=== PATIENT | female | born 1950 | race Caucasian/White ===

== ENCOUNTER 2017-12-14 15:41 | Inpatient (IN) | payer MEDICARE, OTHER ==
[~2017-12-14] VITALS: Ht 167.6 cm; Wt 96.6 kg
[2017-12-14 16:00] LABS: BASOPHILS ABSOLUTE AUTO 0.05 K/mm3 (0.00-0.23); BASOPHILS PERCENT AUTO 1 % (0-2); EOSINOPHILS ABSOLUTE AUTO 0.14 K/mm3 (0.00-0.68); EOSINOPHILS PERCENT AUTO 2 % (0-6); Hematocrit 46.2 % (33.0-51.0); Hemoglobin 14.6 g/dL (11.5-16.0); IMMATURE GRAN ABSOLUTE AUTO 0.02 K/mm3 (0.00-0.10); IMMATURE GRAN PERCENT AUTO 0 % (0-1); LYMPHOCYTES ABSOLUTE AUTO 2.13 K/mm3 (0.84-5.20); LYMPHOCYTES PERCENT AUTO 29 % (21-46); MONOCYTES ABSOLUTE AUTO 0.71 K/mm3 (0.16-1.47); MONOCYTES PERCENT AUTO 10 % (4-13); Mean Corpuscular HGB 27.3 pg (26.0-34.0); Mean Corpuscular HGB Conc 31.6 g/dL (31.5-36.5); Mean Corpuscular Volume 87 fL (80-100); Mean Platelet Volume 12.4 fL (9.1-12.4); NEUTROPHILS ABSOLUTE AUTO 4.34 K/mm3 (1.96-9.15); NEUTROPHILS PERCENT AUTO 59 % (41-73); Platelet Count 245 K/mm3 (150-400); RDW Coefficient Variation 14.8 % (11.7-14.2); RDW Standard Deviation 46.5 fL (35.1-46.3); Red Blood Cell Count 5.34 M/mm3 (3.80-5.20); White Blood Cell Count 7.39 K/mm3 (4.00-11.30)
[2017-12-14 16:21] LABS: Alanine Aminotransfer (ALT/SGP 34 U/L (12-78); Albumin, Blood 3.8 g/dL (3.4-5.0); Albumin/Globulin Ratio 1.2 (0.8-1.8); Alk Phos 66 U/L (50-136); Anion Gap 9 mmol/L (6-16); Aspartate Aminotrans (AST/SGOT 16 U/L (12-37); Bilirubin, Total 1.1 mg/dL (0.1-1.0); Blood Urea Nitrogen 11 mg/dL (8-24); Bun/Creatinine Ratio 14.9 (12.0-20.0); CO2, Blood 30 mmol/L (21-32); Calcium, Blood 8.8 mg/dL (8.5-10.1); Chloride, Blood 104 mmol/L (98-108); Creatinine, Blood 0.74 mg/dL (0.40-1.00); Globulin, Blood 3.2 g/dL (2.2-4.0); Glomerular Filtration Rate >60 (60-); Glucose, Blood 100 mg/dL (70-99); Potassium, Blood 3.4 mmol/L (3.5-5.5); Sodium, Blood 143 mmol/L (136-145); Troponin I <0.015 ng/mL (0.000-0.040)
[2017-12-15 06:48] LABS: Hematocrit 44.2 % (33.0-51.0); Mean Corpuscular HGB 27.2 pg (26.0-34.0); Mean Corpuscular HGB Conc 31.7 g/dL (31.5-36.5); Mean Corpuscular Volume 86 fL (80-100); Mean Platelet Volume 12.2 fL (9.1-12.4); Platelet Count 234 K/mm3 (150-400); RDW Coefficient Variation 14.8 % (11.7-14.2); RDW Standard Deviation 46.7 fL (35.1-46.3); Red Blood Cell Count 5.15 M/mm3 (3.80-5.20)
[2017-12-15 07:06] LABS: Anion Gap 8 mmol/L (6-16); Blood Urea Nitrogen 11 mg/dL (8-24); Bun/Creatinine Ratio 18.2 (12.0-20.0); CO2, Blood 29 mmol/L (21-32); Chloride, Blood 105 mmol/L (98-108); Creatinine, Blood 0.61 mg/dL (0.40-1.00); Glomerular Filtration Rate >60 (60-); Glucose, Blood 89 mg/dL (70-99); Potassium, Blood 4.1 mmol/L (3.5-5.5); Sodium, Blood 142 mmol/L (136-145); Troponin I <0.015 ng/mL (0.000-0.040)
[2017-12-16 03:58] LABS: BASOPHILS ABSOLUTE AUTO 0.03 K/mm3 (0.00-0.23); BASOPHILS PERCENT AUTO 1 % (0-2); EOSINOPHILS ABSOLUTE AUTO 0.32 K/mm3 (0.00-0.68); EOSINOPHILS PERCENT AUTO 5 % (0-6); Hematocrit 46.1 % (33.0-51.0); Hemoglobin 14.2 g/dL (11.5-16.0); IMMATURE GRAN ABSOLUTE AUTO 0.01 K/mm3 (0.00-0.10); IMMATURE GRAN PERCENT AUTO 0 % (0-1); LYMPHOCYTES PERCENT AUTO 27 % (21-46); MONOCYTES ABSOLUTE AUTO 0.63 K/mm3 (0.16-1.47); MONOCYTES PERCENT AUTO 10 % (4-13); Mean Corpuscular HGB 26.7 pg (26.0-34.0); Mean Corpuscular HGB Conc 30.8 g/dL (31.5-36.5); Mean Corpuscular Volume 87 fL (80-100); Mean Platelet Volume 12.6 fL (9.1-12.4); NEUTROPHILS ABSOLUTE AUTO 3.61 K/mm3 (1.96-9.15); NEUTROPHILS PERCENT AUTO 57 % (41-73); Platelet Count 219 K/mm3 (150-400); RDW Coefficient Variation 14.6 % (11.7-14.2); Red Blood Cell Count 5.31 M/mm3 (3.80-5.20)
[2017-12-16 04:28] LABS: Albumin, Blood 3.3 g/dL (3.4-5.0); Anion Gap 7 mmol/L (6-16); Blood Urea Nitrogen 14 mg/dL (8-24); Bun/Creatinine Ratio 19.4 (12.0-20.0); CO2, Blood 31 mmol/L (21-32); Calcium, Blood 8.5 mg/dL (8.5-10.1); Chloride, Blood 104 mmol/L (98-108); Creatinine, Blood 0.72 mg/dL (0.40-1.00); Glomerular Filtration Rate >60 (60-); Glucose, Blood 97 mg/dL (70-99); Phosphorus, Blood 4.3 mg/dL (2.5-4.9); Potassium, Blood 4.2 mmol/L (3.5-5.5); Sodium, Blood 142 mmol/L (136-145); Troponin I <0.015 ng/mL (0.000-0.040)
[2017-12-17 04:19] LABS: BASOPHILS ABSOLUTE AUTO 0.05 K/mm3 (0.00-0.23); BASOPHILS PERCENT AUTO 1 % (0-2); EOSINOPHILS ABSOLUTE AUTO 0.28 K/mm3 (0.00-0.68); EOSINOPHILS PERCENT AUTO 5 % (0-6); Hematocrit 45.3 % (33.0-51.0); Hemoglobin 14.3 g/dL (11.5-16.0); IMMATURE GRAN ABSOLUTE AUTO 0.02 K/mm3 (0.00-0.10); IMMATURE GRAN PERCENT AUTO 0 % (0-1); LYMPHOCYTES PERCENT AUTO 30 % (21-46); MONOCYTES ABSOLUTE AUTO 0.58 K/mm3 (0.16-1.47); MONOCYTES PERCENT AUTO 10 % (4-13); Mean Corpuscular HGB 27.2 pg (26.0-34.0); Mean Corpuscular HGB Conc 31.6 g/dL (31.5-36.5); Mean Corpuscular Volume 86 fL (80-100); Mean Platelet Volume 12.7 fL (9.1-12.4); NEUTROPHILS ABSOLUTE AUTO 3.31 K/mm3 (1.96-9.15); NEUTROPHILS PERCENT AUTO 55 % (41-73); Platelet Count 210 K/mm3 (150-400); RDW Coefficient Variation 14.5 % (11.7-14.2); RDW Standard Deviation 45.1 fL (35.1-46.3); Red Blood Cell Count 5.26 M/mm3 (3.80-5.20); White Blood Cell Count 6.04 K/mm3 (4.00-11.30)
[2017-12-17 04:51] LABS: Albumin, Blood 3.5 g/dL (3.4-5.0); Anion Gap 8 mmol/L (6-16); Blood Urea Nitrogen 17 mg/dL (8-24); Bun/Creatinine Ratio 23.9 (12.0-20.0); CO2, Blood 31 mmol/L (21-32); Calcium, Blood 8.9 mg/dL (8.5-10.1); Chloride, Blood 101 mmol/L (98-108); Creatinine, Blood 0.71 mg/dL (0.40-1.00); Glomerular Filtration Rate >60 (60-); Glucose, Blood 92 mg/dL (70-99); Phosphorus, Blood 5.2 mg/dL (2.5-4.9); Potassium, Blood 4.2 mmol/L (3.5-5.5); Sodium, Blood 140 mmol/L (136-145)
[2017-12-18 07:37] LABS: Performing Lab VAMCL; Test Name PT INR
[2017-12-19 07:12] LABS: Anion Gap 10 mmol/L (6-16); Blood Urea Nitrogen 28 mg/dL (8-24); Bun/Creatinine Ratio 31.4 (12.0-20.0); CO2, Blood 32 mmol/L (21-32); Calcium, Blood 9.2 mg/dL (8.5-10.1); Chloride, Blood 98 mmol/L (98-108); Creatinine, Blood 0.89 mg/dL (0.40-1.00); Glomerular Filtration Rate >60 (60-); Glucose, Blood 99 mg/dL (70-99); Magnesium, Blood 2.2 mg/dL (1.6-2.4); Potassium, Blood 4.6 mmol/L (3.5-5.5); Sodium, Blood 140 mmol/L (136-145)
[2017-12-19] MEDS ORDERED: ASPI81CH PO (13:19)
[2017-12-19] MEDS ORDERED: CLOP75 PO (13:20)
[2017-12-19] MEDS ORDERED: CARV3.125 PO (13:21)
[2017-12-19] MEDS ORDERED: NITR.4SL SL (13:22)
[2017-12-19] MEDS ORDERED: SPIR25 PO (13:29)
[2017-12-19] MEDS ORDERED: PANT40 PO (13:30)
[2017-12-19] MEDS ORDERED: TORSE20 PO (13:35)
== END 2017-12-19 14:10 | disposition home or self-care (01) | DRG 287 ==
LOC: ER 15:41 → PCU 18:18
PROVIDERS: Emergency Medicine; Family Medicine; Internal Medicine; Internal Medicine Cardiovascular Disease; Nurse Practitioner Acute Care
PROC: 4A023N7 Measurement of Cardiac Sampling and Pressure, Left Heart, Percutaneous Approach (ICD-10-PCS; principal; 2017-12-18)
PROC: B2111ZZ Fluoroscopy of Multiple Coronary Arteries using Low Osmolar Contrast (ICD-10-PCS; 2017-12-18)
DX: I11.0 Hypertensive heart disease with heart failure (principal); I50.41 Acute combined systolic (congestive) and diastolic (congestive) heart failure; I25.10 Atherosclerotic heart disease of native coronary artery without angina pectoris; I42.0 Dilated cardiomyopathy; I25.5 Ischemic cardiomyopathy; Z68.35 Body mass index [BMI] 35.0-35.9, adult; E66.01 Morbid (severe) obesity due to excess calories; E87.6 Hypokalemia; I45.81 Long QT syndrome; I44.7 Left bundle-branch block, unspecified; I95.1 Orthostatic hypotension; I34.0 Nonrheumatic mitral (valve) insufficiency; J44.9 Chronic obstructive pulmonary disease, unspecified; E78.5 Hyperlipidemia, unspecified; K21.9 Gastro-esophageal reflux disease without esophagitis; M81.0 Age-related osteoporosis without current pathological fracture; C50.911 Malignant neoplasm of unspecified site of right female breast; Z79.811 Long term (current) use of aromatase inhibitors; Z90.11 Acquired absence of right breast and nipple; Z82.49 Family history of ischemic heart disease and other diseases of the circulatory system; Z87.891 Personal history of nicotine dependence; Z79.83 Long term (current) use of bisphosphonates; Z79.899 Other long term (current) drug therapy; Z79.52 Long term (current) use of systemic steroids
CPT/HCPCS: 36415; 71046; 80048; 80053; 80069; 83735; 83880; 84484; 85025; 85027; 85379; 85610; 86850; 86900; 86901; 93005; 93010; 93306; 93458; 94760; 96365; 96375; 99152; 99153; 99285; C1769; C1894; J1644; J1650; J1940; J2250; J3010; J3475; J3480; J7030; Q9967

== ENCOUNTER → 2017-12-14 | Outpatient (CLI) | payer MEDICARE, OTHER ==
[~2017-12-14] MED LIST: ALEN70 PO; AMLO10 PO; ANAS1 PO; ATEN25 PO; CYCL10 PO; Cyclobenzaprine5 MG PO; Fludrocortison0.1 MG PO; GABA100 PO; HYDACE5; HYDACE5 PO; IBUP800; LEVFLO500 PO; LISI20 PO; MELO7.5 PO; NAPR550 PO; OMEP20ER PO; OXYACE5T PO; PRED20 PO; RXCYCL10 PO; RXHYDACE PO; RXNAPNA550 PO; Simvastatin20 MG PO; TRAM50 PO; VITAMIN D5000 UNIT PO; Zantac150 MG PO
[2017-12-14 15:43] LABS: BASOPHILS ABSOLUTE AUTO 0.05 K/mm3 (0.00-0.23); BASOPHILS PERCENT AUTO 1 % (0-2); EOSINOPHILS ABSOLUTE AUTO 0.11 K/mm3 (0.00-0.68); EOSINOPHILS PERCENT AUTO 2 % (0-6); Hematocrit 45.2 % (33.0-51.0); Hemoglobin 14.6 g/dL (11.5-16.0); IMMATURE GRAN ABSOLUTE AUTO 0.03 K/mm3 (0.00-0.10); IMMATURE GRAN PERCENT AUTO 0 % (0-1); LYMPHOCYTES PERCENT AUTO 26 % (21-46); MONOCYTES ABSOLUTE AUTO 0.66 K/mm3 (0.16-1.47); MONOCYTES PERCENT AUTO 9 % (4-13); Mean Corpuscular HGB 27.2 pg (26.0-34.0); Mean Corpuscular HGB Conc 32.3 g/dL (31.5-36.5); Mean Corpuscular Volume 84 fL (80-100); NEUTROPHILS ABSOLUTE AUTO 4.57 K/mm3 (1.96-9.15); NEUTROPHILS PERCENT AUTO 62 % (41-73); RDW Coefficient Variation 14.9 % (11.7-14.2); RDW Standard Deviation 45.1 fL (35.1-46.3); Red Blood Cell Count 5.36 M/mm3 (3.80-5.20); White Blood Cell Count 7.32 K/mm3 (4.00-11.30)
[2017-12-14 16:03] LABS: Alanine Aminotransfer (ALT/SGP 38 U/L (12-78); Albumin/Globulin Ratio 1.3 (0.8-1.8); Alk Phos 70 U/L (40-126); Anion Gap 8 mmol/L (6-16); Aspartate Aminotrans (AST/SGOT 22 U/L (12-37); Bilirubin, Total 1.3 mg/dL (0.1-1.0); Blood Urea Nitrogen 13 mg/dL (8-24); Bun/Creatinine Ratio 16.7 (12.0-20.0); CO2, Blood 31 mmol/L (21-32); Chloride, Blood 104 mmol/L (98-108); Creatinine, Blood 0.78 mg/dL (0.40-1.00); Glomerular Filtration Rate >60 (60-); Glucose, Blood 102 mg/dL (70-99); Potassium, Blood 3.9 mmol/L (3.5-5.5); Sodium, Blood 143 mmol/L (136-145)
[2017-12-14 16:04] LABS: Troponin I <0.017 ng/mL (0.000-0.040)
[2017-12-14 17:29] LABS: Mean Platelet Volume 12.4 fL (9.1-12.4); Platelet Count 216 K/mm3 (150-400)
== END | disposition home or self-care (01) ==
LOC: LAB EV 15:33 → LAB SHORT 15:33
PROVIDERS: Physician Assistant
DX: R07.9 Chest pain, unspecified (principal)
CPT/HCPCS: 80053; 83880; 84484; 85025; 85379

== ENCOUNTER 2021-01-17 20:31 | Inpatient (IN) | payer MEDICARE, OTHER ==
[~2021-01-17] VITALS: Ht 160 cm; Wt 98.7 kg
[~2021-01-17 20:31] MED LIST changes: +ASPI81CH PO; +ATORVASTATIN CA40 M1 PO; +Aldactone25 MG PO; +Alendronate Sod70 MG PO; +Aspir 8181 MG PO; +CARV3.125 PO; +CLOP75 PO; +ENTRESTO 49 MG1 EAC2 PO; +FAMO10 PO; +LATANOPROST2.5 M1 BOTHEYES; +METO50ER PO; +NITR.4SL SL; +Nitroglycerin1 EAC3 TOP; +PANT40 PO; +SPIR25 PO; +TORSE20 PO
[2021-01-17] MEDS ORDERED: TRAM50 PO (21:02)
[2021-01-17 21:06] LABS: BASOPHILS ABSOLUTE AUTO 0.05 K/mm3 (0.00-0.23); BASOPHILS PERCENT AUTO 0 % (0-2); EOSINOPHILS ABSOLUTE AUTO 0.01 K/mm3 (0.00-0.68); EOSINOPHILS PERCENT AUTO 0 % (0-6); Hematocrit 50.2 % (33.0-51.0); Hemoglobin 16.2 g/dL (11.5-16.0); IMMATURE GRAN ABSOLUTE AUTO 0.08 K/mm3 (0.00-0.10); IMMATURE GRAN PERCENT AUTO 1 % (0-1); LYMPHOCYTES PERCENT AUTO 9 % (21-46); MONOCYTES ABSOLUTE AUTO 1.08 K/mm3 (0.16-1.47); MONOCYTES PERCENT AUTO 7 % (4-13); Mean Corpuscular HGB 27.2 pg (26.0-34.0); Mean Corpuscular HGB Conc 32.3 g/dL (31.5-36.5); Mean Corpuscular Volume 84 fL (80-100); Mean Platelet Volume 12.1 fL (9.1-12.4); NEUTROPHILS ABSOLUTE AUTO 13.72 K/mm3 (1.96-9.15); NEUTROPHILS PERCENT AUTO 83 % (41-73); Platelet Count 314 K/mm3 (150-400); RDW Coefficient Variation 13.9 % (11.7-14.2); RDW Standard Deviation 42.7 fL (35.1-46.3); Red Blood Cell Count 5.96 M/mm3 (3.80-5.20); White Blood Cell Count 16.44 K/mm3 (4.00-11.30)
[2021-01-17 21:26] LABS: Alanine Aminotransfer (ALT/SGP 31 U/L (12-78); Albumin, Blood 4.3 g/dL (3.4-5.0); Albumin/Globulin Ratio 1.2 (0.8-1.8); Alk Phos 84 U/L (50-136); Anion Gap 11 mmol/L (6-16); Aspartate Aminotrans (AST/SGOT 23 U/L (12-37); Bilirubin, Total 0.8 mg/dL (0.1-1.0); Blood Urea Nitrogen 18 mg/dL (8-24); Bun/Creatinine Ratio 20.8 (12.0-20.0); CO2, Blood 25 mmol/L (21-32); Calcium, Blood 9.8 mg/dL (8.5-10.1); Chloride, Blood 101 mmol/L (98-108); Creatinine, Blood 0.87 mg/dL (0.40-1.00); Globulin, Blood 3.7 g/dL (2.2-4.0); Glomerular Filtration Rate >60 (60-); Glucose, Blood 154 mg/dL (70-99); Potassium, Blood 3.9 mmol/L (3.5-5.5); Sodium, Blood 137 mmol/L (136-145); Troponin I <0.015 ng/mL (0.000-0.040)
[2021-01-18 05:29] LABS: Anion Gap 10 mmol/L (6-16); Blood Urea Nitrogen 17 mg/dL (8-24); Bun/Creatinine Ratio 21.7 (12.0-20.0); CO2, Blood 22 mmol/L (21-32); Calcium, Blood 8.3 mg/dL (8.5-10.1); Chloride, Blood 106 mmol/L (98-108); Creatinine, Blood 0.79 mg/dL (0.40-1.00); Glomerular Filtration Rate >60 (60-); Glucose, Blood 162 mg/dL (70-99); Potassium, Blood 4.2 mmol/L (3.5-5.5); Sodium, Blood 138 mmol/L (136-145)
[2021-01-18 05:40] LABS: CHOL/HDL RATIO 2.7; Cholesterol 85 mg/dL (50-200); HDL Cholesterol 32 mg/dL (>39); LDL/HDL RATIO 1.3; Low Density Lipoprotein Chol 41 mg/dL (0-110); Triglycerides 59 mg/dL (30-160); Very Low Density Lipoprot Chol 11 mg/dL (6-32)
--- NOTE | 2021-01-18 05:55 | NUR ---
SHIFT SUMMARY NWE ER ADMIT THIS SHIFT (99) NO ACUTE CHANGES SINCE ASSUMING CARE, A&O, USES CALL LIGHT APPROP, MEDICATED 2X FOR PAIN, C/O MILD NAUSEA THAT HAVE BEEN RELIEVED W/PAIN CONTROL, SLEEPING AT THIS TIME, CALL LIGHT IN REACH, BED ALARM ACTIVE, WILL CONT TO MONITOR UNTIL REPORT GIVEN TO DAY RN.
--- NOTE | 2021-01-18 18:25 | NUR ---
SHIFT SUMMARY PT AOX4; VERY PAINFUL ON HER ABD- STATED THAT HER PAIN RADIATE TO HER BACK; MEDICATED PER EMAR AND CALLED THE DR FOR PAIN THAT IS NOT GETTING BETTER TODAY; GIVEN ONE TIME ORDER DILAUDID 1MG. PT STATED HER PAIN WORSE WHEN SHE STARTS DRINKING WATER; THEREFORE ADVICED TO HAVE ICE CHIPS INSTEAD. PT STATED FEELING BETTER. BED IS IN THE LOWEST POSITION AND CALL LIGHT WITHIN REACH.
--- NOTE | 2021-01-19 02:06 | NUR ---
PT with hx of Judie & pacemaker with AICD has pancreatitis & persistant adb pain & nausea. Cl liquid diet taken less than 10%. Medicated with dilaudid 1 mg IV , Zophran & phenergan for pain & nausea with helpful effect.PT says AICD & pacemaker since 05/13/2018. 100 % paced rate 114 per tele monitor. On IV fluids. Up with assist to BSC.
--- NOTE | 2021-01-19 04:07 | NUR ---
DR THOMPSON called & updated on multiple calls from [employer] OCTOBER about HR sustained 130 for extended period. PT has acute pancreatitis & was NPO but has cl liquid diet. She has taken mostly ice chips with minimal oral intake. DR Thompson says to resume oral home cardiac meds. PT has cardiac stent AICD bivent pacemaker & alternates between 100% paced & not. Will verify home med list sent from [facility].
[2021-01-19 04:46] LABS: BASOPHILS ABSOLUTE AUTO 0.05 K/mm3 (0.00-0.23); BASOPHILS PERCENT AUTO 0 % (0-2); EOSINOPHILS PERCENT AUTO 0 % (0-6); Hematocrit 51.4 % (33.0-51.0); IMMATURE GRAN ABSOLUTE AUTO 0.06 K/mm3 (0.00-0.10); IMMATURE GRAN PERCENT AUTO 0 % (0-1); LYMPHOCYTES ABSOLUTE AUTO 0.57 K/mm3 (0.84-5.20); LYMPHOCYTES PERCENT AUTO 4 % (21-46); MONOCYTES ABSOLUTE AUTO 1.11 K/mm3 (0.16-1.47); MONOCYTES PERCENT AUTO 7 % (4-13); Mean Corpuscular HGB 27.3 pg (26.0-34.0); Mean Corpuscular HGB Conc 31.1 g/dL (31.5-36.5); Mean Corpuscular Volume 88 fL (80-100); NEUTROPHILS ABSOLUTE AUTO 14.52 K/mm3 (1.96-9.15); NEUTROPHILS PERCENT AUTO 89 % (41-73); Platelet Count 273 K/mm3 (150-400); RDW Coefficient Variation 14.6 % (11.7-14.2); Red Blood Cell Count 5.87 M/mm3 (3.80-5.20); White Blood Cell Count 16.31 K/mm3 (4.00-11.30)
[2021-01-19 05:08] LABS: Alanine Aminotransfer (ALT/SGP 19 U/L (12-78); Albumin, Blood 3.1 g/dL (3.4-5.0); Albumin/Globulin Ratio 0.9 (0.8-1.8); Alk Phos 64 U/L (50-136); Anion Gap 6 mmol/L (6-16); Aspartate Aminotrans (AST/SGOT 16 U/L (12-37); Blood Urea Nitrogen 17 mg/dL (8-24); Bun/Creatinine Ratio 21.9 (12.0-20.0); CO2, Blood 24 mmol/L (21-32); Calcium, Blood 7.9 mg/dL (8.5-10.1); Chloride, Blood 110 mmol/L (98-108); Creatinine, Blood 0.78 mg/dL (0.40-1.00); Globulin, Blood 3.4 g/dL (2.2-4.0); Glomerular Filtration Rate >60 (60-); Glucose, Blood 139 mg/dL (70-99); Potassium, Blood 4.5 mmol/L (3.5-5.5); Sodium, Blood 140 mmol/L (136-145); Total Protein, Blood 6.5 g/dL (6.4-8.2)
--- NOTE | 2021-01-19 11:54 | NUR ---
CARE COORDINATION REFERRAL - ADMIT: 01/17/21 DISCHARGE: DX: ACUTE PANCREATITIS CC: HONG CRISTINA CALL: PT @ [phone] OR SISTER PILLO [phone] RESIDENCE: HOME CAREGIVER: PILLO HUDSON, FAMILY MEMBER, DX: CHRONIC SYSTOLIC HEART FAILURE, CAD, GERD, HTN, LBBB DME: NONE CCM: NONE HOME HEALTH: NONE SUMMARY: 01/18/21- MET WITH PT, SHE REPORTS THAT SHE WAS INDEPDENT PRIOR TO COMING INTO THE HOSPITAL. SHE DID NOT NEED ANY CAREGIVERS OR HOME HEALTH. PT REPORTS THAT SHE LIVES WITH HER BOYFRIEND AND GRANDSON. THEY LIVE IN A SINGLE STORY HOME WITH WORKING UTILITIES. PT DOES STILL DRIVE BUT HER SISTER WILL BE THE ONE TO COME PICK HER UP. SHE DOES NOT HAVE POA BUT HER SISTER, PILLO, IS HER NEXT OF KIN. SHE STATES THAT SHE HAS NO DME NEEDS. PT MANAGES HER OWN MEDICATIONS AND HER PHARMACY IS [facility] IN [place]. -DILMA
--- NOTE | 2021-01-19 17:35 | NUR ---
PT IS ALERT AND ORIENTED X4, RESTING IN BED AFTER PM MEDICATION ADMIN. PT LOWER BACK AND ABDPAIN HAS BEEN TREATED PER EMAR. PT MAKES NO COMPLAINTS OF CHEST PAIN OR SOB A THIS TIME, NO ALERTS FROM TELE AND CONT ON 2L NC. PT IV LINE IS WNL AND SL. DAUGHTER WAS AT BEDSIDE THIS SHIFT. BED IN LOW POSITION AND CALL LIGHT WITHIN REACH. STAFF WILL CONT TO MONITOR.
--- NOTE | 2021-01-20 02:04 | NUR ---
PT with AICD & bival pacemaker improving paced rate at 92 currently. Dyspnea with exertion 02 sats less than 88% on room air & after activity. Denies nausea, abd pain decreased greatly. Continues to have poor appetite tolerated clear liquids for dinner but only took 25%. Lipase had decreased from greater than 30,000 to under 2,000 yesterday AM. PT says she hopes to Dc home today. Does not have home oxygen set up. Says she has support for DC Sig other & Grandson live with her. Medicated once for CO rt back pain of a 7 with 1 mg IV dilaudid.
--- NOTE | 2021-01-20 12:02 | NUR ---
01/20/21- PER CHART REVIEW WITH DR. TENORIO, PT WILL NOT BE D/C HOME TODAY DUE TO ABNORMAL XRAY, CARDIOMYOPATHY AND LEFT LOWER LOBE PNEUMONIA.-DILMA
[2021-01-20 12:54] LABS: Hematocrit 43.4 % (33.0-51.0); Hemoglobin 13.6 g/dL (11.5-16.0); Mean Corpuscular HGB 27.4 pg (26.0-34.0); Mean Corpuscular HGB Conc 31.3 g/dL (31.5-36.5); Mean Corpuscular Volume 88 fL (80-100); Platelet Count 208 K/mm3 (150-400); RDW Coefficient Variation 14.8 % (11.7-14.2); RDW Standard Deviation 47.8 fL (35.1-46.3); Red Blood Cell Count 4.96 M/mm3 (3.80-5.20); White Blood Cell Count 11.12 K/mm3 (4.00-11.30)
[2021-01-20 13:11] LABS: Albumin, Blood 2.6 g/dL (3.4-5.0); Albumin/Globulin Ratio 0.7 (0.8-1.8); Bilirubin, Total 1.5 mg/dL (0.1-1.0); Bun/Creatinine Ratio 20.5 (12.0-20.0); Calcium, Blood 8.4 mg/dL (8.5-10.1); Creatinine, Blood 1.76 mg/dL (0.40-1.00); Globulin, Blood 3.6 g/dL (2.2-4.0); Potassium, Blood 4.6 mmol/L (3.5-5.5); Total Protein, Blood 6.2 g/dL (6.4-8.2)
[2021-01-20 13:35] LABS: BAND PERCENT MAN 25 % (0-8); BASOPHILS PERCENT MAN 0 % (0-2); EOSINOPHILS PERCENT MAN 0 % (0-6); LYMPHOCYTES ABSOLUTE MAN 0.66 K/mm3 (0.84-5.20); LYMPHOCYTES PERCENT MAN 6 % (21-46); METAMYELOCYTE ABSOLUTE MAN 0.44 K/mm3 (0.00-0.00); METAMYELOCYTE PERCENT MAN 4 % (0-0); MONOCYTES ABSOLUTE MAN 0.33 K/mm3 (0.16-1.47); MONOCYTES PERCENT MAN 3 % (4-13); NEUTROPHILS ABSOLUTE MAN 9.67 K/mm3 (1.96-9.15); SEG NEUTROPHILS PERCENT MAN 62 % (41-73); TOTAL CELLS COUNTED 100
[2021-01-20 13:39] LABS: SARS-Cov-2 (COVID-19) PCR, MMC NEGATIVE (NEGATIVE)
[2021-01-20 14:16] LABS: Performing Lab SYMBIODX; Test Name FLOW CYTOMETRY
--- NOTE | 2021-01-20 18:44 | NUR ---
PT ALERT AND ORIENTED X4, RESTING IN BED AFTER PM MEDICATION ADMIN AND DINNER. PT MAKES NO COMPLAINTS OF PAIN AT THIS TIME, HOWEVER TREATED PER EMAR THIS SHIFT. NO N/V REPORTED. NS AND ABT RUNNING, IV LINE WNL/POSITIONAL. PT TO AMBULATE WITH GAIT AND FFW SHE REMAINS UNSTEADY ON HER FEET. BED IN LOW POSITION AND CALL LIGHT WITHIN REACH. STAFF WILL CONTINUE TO MONITOR.
--- NOTE | 2021-01-20 23:13 | NUR ---
DR LEIVA was called to update on hypotension & tachycardia. PT is weak & SOB with exertion. CO acid reflux & no bowel movement since prior to admit. 500 ml NS bolus ordered & given PT has NS at 75 ml hr infusing now. Tums & sennacot order as well as colace for bowel care obtained & given. Order for UA with C&S if indicated obtained hx of UTI, Renal Bladder US done results pending. CXR done indicated possible lllobe pneumonia. Increased oxygen needs 2.5 l NC. Bioxx. IS ordered & 2 sets of 10 done. Poor technique. Hx of lt breast cancer mastectomy lt side. On IV zosyn Q 6 hrs. Tolerating some full liquids, yogurt provided set up cued.
--- NOTE | 2021-01-20 23:23 | NUR ---
DR LEIVA discussed pain med use & fentanyl 25 mcg rx Q 4 hrs PRN it see if dilaudid may be causing hypoxia. Kpad provided use incouraged. Will try fentanyl for abd & back pain.
--- NOTE | 2021-01-21 00:17 | NUR ---
PT was hypotensive with BP improved after 500 ml fluid bolus. She continues with poor appetite & co intermittant abd & back pain 7 or 8/10 relieved by kpad use & narcotics. IV fluid NS infusing. She voids adeq amts of pink tinged urine. On plavix, most home BP cardiac meds on hold due to hypotension. Continues tachycardic 100 to 110. Continues to need oxygen to keep satts greater than 90%.
[2021-01-21 02:24] LABS: Source, Urine Clean Catch
[2021-01-21 02:35] LABS: Bilirubin, Urine Neg (Neg); Blood, Urine 2+ (Neg); Glucose Qualitative, Urine Neg (Neg); Ketones, Urine Neg (Neg); Leukocyte Esterase, Urine 3+ (Neg); Nitrite, Urine Neg (Neg); Protein, Urine 2+ (Neg); Specific Gravity, Urine 1.015 (1.003-1.022); Urobilinogen, Urine NORM (Normal)
[2021-01-21 02:54] LABS: Appearance, Urine Hazy (Clear); Color, Urine Yellow (P-Yellow)
[2021-01-21 02:55] LABS: Amorphous Mod (0-Heavy); Bacteria Mod /hpf; Squamous Epithelial Cells Not Seen /hpf (Few); White Blood Cells, Urine TNTC /hpf (0-5)
[2021-01-21 05:09] LABS: Hematocrit 41.1 % (33.0-51.0); Hemoglobin 12.8 g/dL (11.5-16.0); Mean Corpuscular HGB 27.4 pg (26.0-34.0); Mean Corpuscular HGB Conc 31.1 g/dL (31.5-36.5); Mean Corpuscular Volume 88 fL (80-100); Mean Platelet Volume 12.1 fL (9.1-12.4); Platelet Count 194 K/mm3 (150-400); RDW Coefficient Variation 14.7 % (11.7-14.2); RDW Standard Deviation 47.1 fL (35.1-46.3); Red Blood Cell Count 4.67 M/mm3 (3.80-5.20); White Blood Cell Count 8.96 K/mm3 (4.00-11.30)
[2021-01-21 05:31] LABS: BAND PERCENT MAN 20 % (0-8); BASOPHILS PERCENT MAN 0 % (0-2); EOSINOPHILS PERCENT MAN 0 % (0-6); LYMPHOCYTES ABSOLUTE MAN 0.89 K/mm3 (0.84-5.20); LYMPHOCYTES PERCENT MAN 10 % (21-46); METAMYELOCYTE ABSOLUTE MAN 0.08 K/mm3 (0.00-0.00); METAMYELOCYTE PERCENT MAN 1 % (0-0); MONOCYTES PERCENT MAN 9 % (4-13); NEUTROPHILS ABSOLUTE MAN 7.16 K/mm3 (1.96-9.15); SEG NEUTROPHILS PERCENT MAN 60 % (41-73); TOTAL CELLS COUNTED 100
[2021-01-21 05:32] LABS: Albumin, Blood 2.2 g/dL (3.4-5.0); Albumin/Globulin Ratio 0.6 (0.8-1.8); Bilirubin, Total 1.6 mg/dL (0.1-1.0); Bun/Creatinine Ratio 21.4 (12.0-20.0); Calcium, Blood 7.9 mg/dL (8.5-10.1); Creatinine, Blood 1.54 mg/dL (0.40-1.00); Globulin, Blood 3.5 g/dL (2.2-4.0); Potassium, Blood 3.9 mmol/L (3.5-5.5); Total Protein, Blood 5.7 g/dL (6.4-8.2)
--- NOTE | 2021-01-21 14:13 | NUR ---
01/21/21- per chart review with Dr. Ray, pt has unknown etiology that is causing pt to have pneumonia. No plan for d/c at this time. -onel
--- NOTE | 2021-01-21 16:56 | NUR ---
PT COMPLAINS OF BACK PAIN FOR WHICH F[facility]ANYL DOESNT DO ANYTHING. PT HAS BEEN ENCOURAGED TO REPOSITION OR SIT UP IN CHAIR SHE COMPLAINS OF BACK PAIN. TYLENOL IS HER PREFERRED PAIN MED IT DOES GIVE HER SOME RELIEF. WARM PAD GIVEN AND USED BY PATIENT. CALL LIGHT WITH IN REACH.
[2021-01-22 05:13] LABS: Hematocrit 37.6 % (33.0-51.0); Hemoglobin 11.9 g/dL (11.5-16.0); Mean Corpuscular HGB 27.4 pg (26.0-34.0); Mean Corpuscular HGB Conc 31.6 g/dL (31.5-36.5); Mean Corpuscular Volume 87 fL (80-100); Platelet Count 202 K/mm3 (150-400); RDW Coefficient Variation 14.7 % (11.7-14.2); RDW Standard Deviation 47.4 fL (35.1-46.3); Red Blood Cell Count 4.34 M/mm3 (3.80-5.20); White Blood Cell Count 7.59 K/mm3 (4.00-11.30)
[2021-01-22 05:40] LABS: Magnesium, Blood 2.3 mg/dL (1.6-2.4); Phosphorus, Blood 1.9 mg/dL (2.5-4.9)
[2021-01-22 05:41] LABS: BAND PERCENT MAN 17 % (0-8); BASOPHILS PERCENT MAN 0 % (0-2); EOSINOPHILS ABSOLUTE MAN 0.07 K/mm3 (0.00-0.68); EOSINOPHILS PERCENT MAN 1 % (0-6); LYMPHOCYTES ABSOLUTE MAN 0.68 K/mm3 (0.84-5.20); LYMPHOCYTES PERCENT MAN 9 % (21-46); MONOCYTES ABSOLUTE MAN 0.91 K/mm3 (0.16-1.47); MONOCYTES PERCENT MAN 12 % (4-13); NEUTROPHILS ABSOLUTE MAN 5.92 K/mm3 (1.96-9.15); SEG NEUTROPHILS PERCENT MAN 61 % (41-73); TOTAL CELLS COUNTED 100
--- NOTE | 2021-01-22 06:31 | NUR ---
SHIFT SUMMARY- PT. A&O, C/O BACK PAIN T/O THE NIGHT. MEDICATED PER EMAR WITH MINIMAL EFFECT. PT. AWAKE MOST OF THE NIGHT, DANGLES AT THE BEDSIDE. AMBULATES W/WALKER ON 2.5L O2 AND SBA TO BATHROOM, TOLERATES WELL. IV FLUIDS INFUSING, VSS. CALL LIGHT WITHIN REACH AND SIDE RAILS UPX2. WILL CONT TO MONITOR.
--- NOTE | 2021-01-22 16:54 | NUR ---
SHIFT SUMMARY PT IS AOX3-4. PT MEDICATED FOR PAIN X1. PT DENIES N/V, SOB. PT IS SBA IN ROOM. PT APPETITE HAS REMAINED POOR, BUT PT STARTED ON CLINIMEX. NO PROCEDURES DONE THIS SHIFT. PT HAS NOT HAD VISITORS THIS SHIFT. PT REMAINS ON 2.5 L O2 VIA NC. PT IS IN BED, CALL LIGHT IN REACH, LOW POSITION.
[2021-01-23 05:13] LABS: Hematocrit 35.1 % (33.0-51.0); Hemoglobin 11.4 g/dL (11.5-16.0); Mean Corpuscular HGB 27.6 pg (26.0-34.0); Mean Corpuscular HGB Conc 32.5 g/dL (31.5-36.5); Mean Corpuscular Volume 85 fL (80-100); Mean Platelet Volume 11.8 fL (9.1-12.4); Platelet Count 192 K/mm3 (150-400); RDW Coefficient Variation 14.9 % (11.7-14.2); RDW Standard Deviation 46.5 fL (35.1-46.3); Red Blood Cell Count 4.13 M/mm3 (3.80-5.20); White Blood Cell Count 8.59 K/mm3 (4.00-11.30)
[2021-01-23 05:32] LABS: BAND PERCENT MAN 15 % (0-8); BASOPHILS PERCENT MAN 0 % (0-2); EOSINOPHILS ABSOLUTE MAN 0.17 K/mm3 (0.00-0.68); EOSINOPHILS PERCENT MAN 2 % (0-6); LYMPHOCYTES PERCENT MAN 7 % (21-46); MONOCYTES ABSOLUTE MAN 0.94 K/mm3 (0.16-1.47); MONOCYTES PERCENT MAN 11 % (4-13); MYELOCYTE ABSOLUTE MAN 0.08 K/mm3 (0.00-0.00); MYELOCYTE PERCENT MAN 1 % (0-0); NEUTROPHILS ABSOLUTE MAN 6.78 K/mm3 (1.96-9.15); SEG NEUTROPHILS PERCENT MAN 64 % (41-73); TOTAL CELLS COUNTED 100
[2021-01-23 05:43] LABS: Anion Gap 5 mmol/L (6-16); Blood Urea Nitrogen 17 mg/dL (8-24); Bun/Creatinine Ratio 20.8 (12.0-20.0); CO2, Blood 25 mmol/L (21-32); Calcium, Blood 8.3 mg/dL (8.5-10.1); Chloride, Blood 110 mmol/L (98-108); Creatinine, Blood 0.82 mg/dL (0.40-1.00); Glomerular Filtration Rate >60 (60-); Glucose, Blood 99 mg/dL (70-99); Potassium, Blood 3.3 mmol/L (3.5-5.5); Sodium, Blood 140 mmol/L (136-145)
[2021-01-23 05:47] LABS: C-REACTIVE PROTEIN, EXT RANGE >19.000 mg/dL (0.000-0.300)
--- NOTE | 2021-01-23 05:59 | NUR ---
SHIFT SUMMARY- NO ACUTE EVENTS OVERNIGHT. PT. WITH C/O BACK PAIN DURING THE NIGHT, MEDICATED SEVERAL TIMES PER EMAR WITH MINIMAL EFFECT. PT. AMBULATING IN ROOM WITH SBA-INDEP. TELEMETRY DC'D. CLINIMIX INFUSING, VSS. CALL LIGHT WITHIN REACH AND SIDE RAILS UPX2. WILL CONT TO MONITOR.
--- NOTE | 2021-01-23 18:21 | NUR ---
Shift Summary; Pt alert, oriented, pleasant this shift. IV leaked early in shift - power glide placed by charge nurse. Zofran given X1 for nausea - pt reports good effect from medication.
[2021-01-24 04:43] LABS: Hematocrit 34.8 % (33.0-51.0); Hemoglobin 11.4 g/dL (11.5-16.0); Mean Corpuscular HGB 27.7 pg (26.0-34.0); Mean Corpuscular HGB Conc 32.8 g/dL (31.5-36.5); Mean Corpuscular Volume 85 fL (80-100); Mean Platelet Volume 12.2 fL (9.1-12.4); Platelet Count 233 K/mm3 (150-400); RDW Coefficient Variation 15.2 % (11.7-14.2); RDW Standard Deviation 46.5 fL (35.1-46.3); Red Blood Cell Count 4.11 M/mm3 (3.80-5.20)
[2021-01-24 05:03] LABS: BAND PERCENT MAN 14 % (0-8); BASOPHILS PERCENT MAN 0 % (0-2); EOSINOPHILS ABSOLUTE MAN 0.11 K/mm3 (0.00-0.68); EOSINOPHILS PERCENT MAN 1 % (0-6); LYMPHOCYTES ABSOLUTE MAN 0.77 K/mm3 (0.84-5.20); LYMPHOCYTES PERCENT MAN 7 % (21-46); METAMYELOCYTE ABSOLUTE MAN 0.11 K/mm3 (0.00-0.00); METAMYELOCYTE PERCENT MAN 1 % (0-0); MONOCYTES ABSOLUTE MAN 0.88 K/mm3 (0.16-1.47); MONOCYTES PERCENT MAN 8 % (4-13); NEUTROPHILS ABSOLUTE MAN 9.21 K/mm3 (1.96-9.15); SEG NEUTROPHILS PERCENT MAN 69 % (41-73); TOTAL CELLS COUNTED 100
[2021-01-24 05:54] LABS: Anion Gap 5 mmol/L (6-16); Blood Urea Nitrogen 15 mg/dL (8-24); Bun/Creatinine Ratio 19.9 (12.0-20.0); CO2, Blood 26 mmol/L (21-32); Calcium, Blood 8.4 mg/dL (8.5-10.1); Chloride, Blood 106 mmol/L (98-108); Creatinine, Blood 0.75 mg/dL (0.40-1.00); Glomerular Filtration Rate >60 (60-); Glucose, Blood 128 mg/dL (70-99); Potassium, Blood 3.3 mmol/L (3.5-5.5); Sodium, Blood 137 mmol/L (136-145)
--- NOTE | 2021-01-24 06:10 | NUR ---
SHIFT SUMMARY- NO ACUTE CHANGES TO CONDITION. PT. MEDICATED LAST NIGHT FOR COMPLAINTS OF BACK PAIN. APPEARED TO HAVE GOOD RELIEF. SLEPT T/O MOST OF THE NIGHT, NO APPARENT DISTRESS NOTED. DENIES ANY NEEDS AT THIS TIME, VSS. CALL LIGHT WITHIN REACH AND SIDE RAILS UPX2. WILL CONT TO MONITOR.
--- NOTE | 2021-01-24 18:08 | NUR ---
SHIFT SUMMARY NAUSEA WITH LUNCH AND DINNER, RESOLVED WITH ZOFRAN. ATE 50% OF LUNCH AND 25% OF DINNER. DRANK 100% OF ENSURE AT DINNER. DESATS TO <90% WITH ACTIVITY AND ON RA. REQUIRES 1LNC AT REST TO MAINTAIN SATS >90%
--- NOTE | 2021-01-25 05:54 | NUR ---
SHIFT SUMMARY PATIENT ALERT AND ORIENTED. WAS MEDICATED PER EMAR FOR PAIN. HAS DYSPNEA UPON EXHERTION. PATIENT CONTINUES TO BE ON 1 LITER OF O2 WHILE AWAKE AND REQUIRED 2.5 WHILE SLEEPING. POWERGLIDE PATENT AND FLUSHED. BED IN LOWEST POSITION WITH WHEELS LOCKED. CALL LIGHT WITHIN REACH. REPORT GIVEN TO ONCOMING RN.
[2021-01-25 06:44] LABS: Alanine Aminotransfer (ALT/SGP 21 U/L (12-78); Albumin, Blood 1.8 g/dL (3.4-5.0); Albumin/Globulin Ratio 0.5 (0.8-1.8); Alk Phos 72 U/L (50-136); Anion Gap 5 mmol/L (6-16); Aspartate Aminotrans (AST/SGOT 35 U/L (12-37); Bilirubin, Total 0.4 mg/dL (0.1-1.0); Blood Urea Nitrogen 12 mg/dL (8-24); Bun/Creatinine Ratio 16.7 (12.0-20.0); CO2, Blood 29 mmol/L (21-32); Calcium, Blood 8.3 mg/dL (8.5-10.1); Chloride, Blood 105 mmol/L (98-108); Creatinine, Blood 0.72 mg/dL (0.40-1.00); Globulin, Blood 3.8 g/dL (2.2-4.0); Glomerular Filtration Rate >60 (60-); Glucose, Blood 100 mg/dL (70-99); Potassium, Blood 4.3 mmol/L (3.5-5.5); Sodium, Blood 139 mmol/L (136-145); Total Protein, Blood 5.6 g/dL (6.4-8.2)
--- NOTE | 2021-01-25 16:34 | NUR ---
SHIFT SUMMARY UP TO BATHROOM WITH FWW AND 1 PERSN ASSIST. O2 DECREASED TO 2L/M, SOB WITH ATIVITY. CONTINUOUS PULSE OX ON AND MAINTAINING 90-91% ON THE 2L/M. DENIES PAIN OR NAUSEA OR ABDOMENAL TENDERNESS. REPORTS SHE IS EATING MORE HERE THAN SHE NORMALLY EATS AT HOME.
--- NOTE | 2021-01-26 04:44 | NUR ---
SHIFT SUMMARY PT DENIED N/V OR ABD PAIN THIS EVENING. PT DOES HAVE CHRONIC PAIN IN BACK R/T ARTHRITIS. HEATING PAD IN PLACE WHICH IS HELPFUL. PT MEDICATED X 1 W/ ROXICODONE 5 MG WITH GOOD EFFECT. PT REPORTED A FEELING OF REFLUX, TUMS PROVIDED. TUMS PRECRUSHED PT DID NOT HAVE HER TEETH. PT ON 3 L VIA NC WITH O2 SATS IN THE LOW 90'S. PT HAD AN UNEVENTFUL NIGHT. SLEPT THROUGH MUCH OF THE NIGHT. VITAL SIGNS STABLE.
[2021-01-26 06:18] LABS: Anion Gap 5 mmol/L (6-16); Blood Urea Nitrogen 10 mg/dL (8-24); Bun/Creatinine Ratio 15.9 (12.0-20.0); CO2, Blood 29 mmol/L (21-32); Calcium, Blood 8.7 mg/dL (8.5-10.1); Chloride, Blood 103 mmol/L (98-108); Creatinine, Blood 0.63 mg/dL (0.40-1.00); Glomerular Filtration Rate >60 (60-); Glucose, Blood 103 mg/dL (70-99); Potassium, Blood 3.3 mmol/L (3.5-5.5); Sodium, Blood 137 mmol/L (136-145)
[2021-01-26] MEDS ORDERED: CEFD300 PO (16:03)
--- NOTE | 2021-01-26 16:32 | NUR ---
DISCHARGE INSTRUCTIONS COMPLETED AND DISCUSSED WITH PT EXPRESSING UNDERSTANDING. SCRIPT FAXED TO [facility]. TO [facility] VIA W/C WITH S.O.
--- NOTE | 2021-01-28 17:25 | NUR ---
UPDATE 01/27/21: PT. APPROPRIATE FOR DISCHARGE. SCHEDULED FOR HOSPITAL F/U ON 02/01/21. PER PT. SHE MIGHT POSSIBLY NEED TO CHANGE TIME FROM 11:40 TO LATER IN THE DAY DUE TO APPOINTMENT WITH [employer]. SHE WAS ADVISED TO CALL IF NEEDED OR TO TELL THE CRISTINA TEAM AND THE TIME OF CRISTINA CALL. PT. STATES SHE HAS STRONG FAMILY SUPPORT SYSTEM. DENIES SAFETY OR MOBILITY CONCERNS. SON TO TRANSPORT TO PHARMACY AND HOME. NO FURTHER CONCERNS AT THIS TIME.
== END 2021-01-26 16:25 | disposition home health service (06) | DRG 438 ==
LOC: ER 20:31 → MEDS 01-18 00:13
PROVIDERS: Family Medicine; Hospitalist; Internal Medicine; Student in an Organized Health Care Education/Training Program; ADMIT Internal Medicine
PROC: 3E0336Z Introduction of Nutritional Substance into Peripheral Vein, Percutaneous Approach (ICD-10-PCS; principal; 2021-01-24)
DX: K85.90 Acute pancreatitis without necrosis or infection, unspecified (principal); J18.9 Pneumonia, unspecified organism; I50.42 Chronic combined systolic (congestive) and diastolic (congestive) heart failure; N17.9 Acute kidney failure, unspecified; I42.9 Cardiomyopathy, unspecified; E78.00 Pure hypercholesterolemia, unspecified; K21.9 Gastro-esophageal reflux disease without esophagitis; D72.829 Elevated white blood cell count, unspecified; I25.10 Atherosclerotic heart disease of native coronary artery without angina pectoris; Z96.651 Presence of right artificial knee joint; J44.9 Chronic obstructive pulmonary disease, unspecified; I11.0 Hypertensive heart disease with heart failure; I99.9 Unspecified disorder of circulatory system; E66.01 Morbid (severe) obesity due to excess calories; M79.7 Fibromyalgia; Z20.822 Contact with and (suspected) exposure to COVID-19; M81.0 Age-related osteoporosis without current pathological fracture; D72.810 Lymphocytopenia; C50.911 Malignant neoplasm of unspecified site of right female breast; Y95 Nosocomial condition; G89.29 Other chronic pain; E87.6 Hypokalemia; M54.9 Dorsalgia, unspecified; E78.5 Hyperlipidemia, unspecified; I95.9 Hypotension, unspecified; Z90.89 Acquired absence of other organs; Z90.49 Acquired absence of other specified parts of digestive tract; Z90.710 Acquired absence of both cervix and uterus; Z91.040 Latex allergy status; Z87.442 Personal history of urinary calculi; Z98.890 Other specified postprocedural states; Z90.11 Acquired absence of right breast and nipple; Z95.828 Presence of other vascular implants and grafts; Z86.010 Personal history of colon polyps; Z87.891 Personal history of nicotine dependence; Z79.02 Long term (current) use of antithrombotics/antiplatelets; Z79.83 Long term (current) use of bisphosphonates; Z79.899 Other long term (current) drug therapy; Z79.82 Long term (current) use of aspirin; Z68.38 Body mass index [BMI] 38.0-38.9, adult; Z95.810 Presence of automatic (implantable) cardiac defibrillator
CPT/HCPCS: 36415; 71045; 71046; 74177; 76770; 80048; 80053; 80061; 81001; 82150; 82947; 83605; 83690; 83735; 83880; 84100; 84145; 84484; 85007; 85025; 85027; 85651; 86140; 87040; 87077; 87086; 87186; 88184; 88185; 93005; 93010; 94762; 96374-59; 96375; 96376; 97110; 97116; 97162; 97166; 97530; 97530-CQ; 97535; 99285-25; A9270; C1751; C9113; J0696; J1170; J1650; J1885; J2270; J2405; J2543; J2550; J3010; J3480; J7030; J7040; J7060; Q9967; U0004

== ENCOUNTER 2021-04-14 07:17 | Day surgery (SDC) | payer MEDICARE, OTHER ==
[~2021-04-14] VITALS: Ht 160 cm; Wt 94.7 kg
[~2021-04-14 07:17] MED LIST changes: +CEFD300 PO
--- NOTE | 2021-04-14 07:50 | NUR ---
04/14/21 0750 Balbir Saeed TETRACAINE APPLED AT 0731 TO RIGHT EYE AND PLEDGET APPLIED AT 0736 PER ORDERS.
== END 2021-04-14 09:12 | disposition home or self-care (01) ==
LOC: ORSCSDS 07:17
PROVIDERS: Ophthalmology
PROC: 08RJ3JZ Replacement of Right Lens with Synthetic Substitute, Percutaneous Approach (ICD-10-PCS; principal; 2021-04-14 08:30)
DX: H25.11 Age-related nuclear cataract, right eye (principal); I10 Essential (primary) hypertension; I25.10 Atherosclerotic heart disease of native coronary artery without angina pectoris; Z95.0 Presence of cardiac pacemaker; Z87.891 Personal history of nicotine dependence; J44.9 Chronic obstructive pulmonary disease, unspecified; Z99.81 Dependence on supplemental oxygen; K21.9 Gastro-esophageal reflux disease without esophagitis; E78.00 Pure hypercholesterolemia, unspecified; E66.01 Morbid (severe) obesity due to excess calories; Z68.37 Body mass index [BMI] 37.0-37.9, adult; Z79.02 Long term (current) use of antithrombotics/antiplatelets; Z79.82 Long term (current) use of aspirin
CPT/HCPCS: J2001; J2250; J3010; J3301; J7040; V2632

== ENCOUNTER 2021-05-05 08:33 | Day surgery (SDC) | payer MEDICARE, OTHER ==
[~2021-05-05] VITALS: Ht 165.1 cm; Wt 96.1 kg
== END 2021-05-05 10:28 | disposition home or self-care (01) ==
LOC: ORSCSDS 08:33
PROVIDERS: Ophthalmology
PROC: 08RK3JZ Replacement of Left Lens with Synthetic Substitute, Percutaneous Approach (ICD-10-PCS; principal; 2021-05-05 09:45)
DX: H25.12 Age-related nuclear cataract, left eye (principal); I25.10 Atherosclerotic heart disease of native coronary artery without angina pectoris; I10 Essential (primary) hypertension; J44.9 Chronic obstructive pulmonary disease, unspecified; Z95.0 Presence of cardiac pacemaker; Z87.891 Personal history of nicotine dependence; Z79.899 Other long term (current) drug therapy; Z79.82 Long term (current) use of aspirin; E66.01 Morbid (severe) obesity due to excess calories; Z68.35 Body mass index [BMI] 35.0-35.9, adult; Z79.02 Long term (current) use of antithrombotics/antiplatelets
CPT/HCPCS: J2001; J2250; J3010; J3301; J7040; V2632

== ENCOUNTER → 2021-10-10 | Outpatient (CLI) | payer MEDICARE, OTHER ==
[2021-10-10 11:25] LABS: Alanine Aminotransfer (ALT/SGP 26 U/L (12-78); Albumin, Blood 3.9 g/dL (3.4-5.0); Albumin/Globulin Ratio 1.2 (0.8-1.8); Alk Phos 77 U/L (40-126); Anion Gap 9 mmol/L (6-16); Aspartate Aminotrans (AST/SGOT 17 U/L (12-37); Bilirubin, Total 1.2 mg/dL (0.1-1.0); Blood Urea Nitrogen 13 mg/dL (8-24); Bun/Creatinine Ratio 14.6 (12.0-20.0); CO2, Blood 24 mmol/L (21-32); Calcium, Blood 9.3 mg/dL (8.5-10.1); Chloride, Blood 99 mmol/L (98-108); Creatinine, Blood 0.89 mg/dL (0.40-1.00); Globulin, Blood 3.2 g/dL (2.2-4.0); Glomerular Filtration Rate >60 (60-); Glucose, Blood 104 mg/dL (70-99); Potassium, Blood 4.9 mmol/L (3.5-5.5); Sodium, Blood 132 mmol/L (136-145); Total Protein, Blood 7.1 g/dL (6.4-8.2); Uric Acid, Blood 4.6 mg/dL (2.6-6.0)
[2021-10-10 11:56] LABS: BASOPHILS ABSOLUTE AUTO 0.07 K/mm3 (0.00-0.23); BASOPHILS PERCENT AUTO 1 % (0-2); EOSINOPHILS ABSOLUTE AUTO 0.18 K/mm3 (0.00-0.68); EOSINOPHILS PERCENT AUTO 2 % (0-6); Hematocrit 45.3 % (33.0-51.0); IMMATURE GRAN ABSOLUTE AUTO 0.03 K/mm3 (0.00-0.10); IMMATURE GRAN PERCENT AUTO 0 % (0-1); LYMPHOCYTES ABSOLUTE AUTO 1.68 K/mm3 (0.84-5.20); LYMPHOCYTES PERCENT AUTO 18 % (21-46); MONOCYTES ABSOLUTE AUTO 0.85 K/mm3 (0.16-1.47); MONOCYTES PERCENT AUTO 9 % (4-13); Mean Corpuscular HGB 29.2 pg (26.0-34.0); Mean Corpuscular HGB Conc 33.1 g/dL (31.5-36.5); Mean Corpuscular Volume 88 fL (80-100); Mean Platelet Volume 12.2 fL (9.1-12.4); NEUTROPHILS ABSOLUTE AUTO 6.43 K/mm3 (1.96-9.15); NEUTROPHILS PERCENT AUTO 70 % (41-73); Platelet Count 345 K/mm3 (150-400); RDW Coefficient Variation 14.1 % (11.7-14.2); RDW Standard Deviation 45.6 fL (35.1-46.3); Red Blood Cell Count 5.14 M/mm3 (3.80-5.20); White Blood Cell Count 9.24 K/mm3 (4.00-11.30)
== END | disposition home or self-care (01) ==
LOC: LAB 11:07 → LAB SHORT 11:07
PROVIDERS: Family Medicine
DX: M19.90 Unspecified osteoarthritis, unspecified site (principal); R53.83 Other fatigue
CPT/HCPCS: 80053; 84550; 85025; 85651; 86038; 86140; 86430

== ENCOUNTER → 2025-06-11 | Outpatient (CLI) | payer MEDICARE, OTHER ==
[2025-06-11 20:27] LABS: Creatinine, Urine Random 70.0 mg/dL (27.00-270.00); Microalb/Creat Ratio UR, Rand 13.829 mg/g (0.000-30.000); Microalbumin, Random Urine 9.68 mg/L (0.000-20.000)
== END ==
LOC: LAB 08:35 → LAB SHORT 08:35
PROVIDERS: Physician Assistant
DX: E11.65 Type 2 diabetes mellitus with hyperglycemia (principal)
CPT/HCPCS: 82043; 82570